=== PATIENT | male | born 1955 | race Caucasian/White ===

== ENCOUNTER 2017-12-17 11:24 | Emergency (ER) | payer MEDICAID ==
[~2017-12-17] VITALS: Ht 172.7 cm; Wt 104.8 kg
[~2017-12-17 11:24] MED LIST: CYCL-259 PO; IBUP-1223 PO; TRAZ-136 PO
[2017-12-17 11:25] VITALS: BP 143/80
[2017-12-17 12:16] LABS: BASOPHILS # (AUTO) 0.01 x10^3/uL (0-0.1); BASOPHILS % (AUTO) 0 % (0-1); EOSINOPHILS # (AUTO) 0.15 x10^3/uL (0-0.4); EOSINOPHILS % (AUTO) 2 % (1-7); LYMPHOCYTES # (AUTO) 1.11 x10^3/uL (1-3.4); LYMPHOCYTES % (AUTO) 13 % (22-44); MD NO; MEAN CORPUSCULAR HEMOGLOBIN 32.3 pg (27.5-34.5); MEAN CORPUSCULAR HGB CONC 34.4 g/dL (33.2-36.2); MEAN CORPUSCULAR VOLUME 93.8 fL (81-97); MEAN PLATELET VOLUME 9.1 fL (7.4-10.4); MONOCYTES # (AUTO) 0.82 x10^3/uL (0.2-0.8); MONOCYTES % (AUTO) 10 % (2-9); NEUTROPHILS # (AUTO) 6.19 x10^3/uL (1.8-6.8); NEUTROPHILS % (AUTO) 75 % (42-75); PLATELET COUNT 190 x10^3/uL (130-400); RED BLOOD COUNT 5.18 x10^6/uL (4.38-5.82); RED CELL DISTRIBUTION WIDTH 12.4 % (9.4-14.8)
[2017-12-17 12:24] LABS: ALBUMIN 3.8 g/dL (3.4-5.0); ANION GAP 7 mmol/L (5-15); CALCIUM 8.2 mg/dL (8.5-10.1); CHLORIDE 108 mmol/L (98-107)
[2017-12-17 12:28] LABS: ALANINE AMINOTRANSFERASE 34 U/L (12-78); ALKALINE PHOSPHATASE 122 U/L (45-117); BILIRUBIN,TOTAL 1.1 mg/dL (0.2-1.0); CREATININE 1.69 mg/dL (0.7-1.3); TOTAL PROTEIN 7.6 g/dL (6.4-8.2)
[2017-12-17] MEDS ORDERED: KETOROLAC 30 MG/1 ML ONE (12:44)
[2017-12-17] MEDS ORDERED: DIAZEPAM 5 MG TABLET ONE (12:45)
[2017-12-17] MEDS ORDERED: KETOROLAC 30 MG/1 ML IM ONE (13:00)
[2017-12-17] MEDS ORDERED: DIAZEPAM 5 MG TABLET PO ONE (13:00)
[2017-12-17 13:43] LABS: MICROSCOPIC NOT IND
[2017-12-17 13:47] LABS: CULTURE INDICATED? NO
== END 2017-12-17 14:22 | disposition home or self-care (01) ==
LOC: ED 13:42
DX: N13.30 Unspecified hydronephrosis (principal); Z87.442 Personal history of urinary calculi
CPT/HCPCS: 36415; 74021; 76770; 80053; 81003; 85025; 96372; 99285; J1885

== ENCOUNTER → 2018-01-16 | Outpatient (CLI) | payer MEDICAID | END | disposition home or self-care (01) | LOC: RAD 12:38 | PROVIDERS: ATTEND Student in an Organized Health Care Education/Training Program | DX: N13.4 Hydroureter (principal); N13.2 Hydronephrosis with renal and ureteral calculous obstruction | CPT/HCPCS: 74176 ==

== ENCOUNTER 2018-01-24 09:12 | Observation (INO) | payer MEDICAID ==
[~2018-01-24] VITALS: Ht 172.7 cm; Wt 101.0 kg
[2018-01-24 09:41] LABS: BASOPHILS # (AUTO) 0.02 x10^3/uL (0-0.1); BASOPHILS % (AUTO) 1 % (0-1); EOSINOPHILS # (AUTO) 0.18 x10^3/uL (0-0.4); EOSINOPHILS % (AUTO) 3 % (1-7); LYMPHOCYTES # (AUTO) 1.12 x10^3/uL (1-3.4); LYMPHOCYTES % (AUTO) 21 % (22-44); MD NO; MEAN CORPUSCULAR HEMOGLOBIN 31.1 pg (27.5-34.5); MEAN CORPUSCULAR VOLUME 91.5 fL (81-97); MEAN PLATELET VOLUME 8.8 fL (7.4-10.4); MONOCYTES # (AUTO) 0.25 x10^3/uL (0.2-0.8); MONOCYTES % (AUTO) 5 % (2-9); NEUTROPHILS # (AUTO) 3.78 x10^3/uL (1.8-6.8); NEUTROPHILS % (AUTO) 71 % (42-75); PLATELET COUNT 192 x10^3/uL (130-400); RED BLOOD COUNT 5.22 x10^6/uL (4.38-5.82); RED CELL DISTRIBUTION WIDTH 12.6 % (9.4-14.8)
[2018-01-24 09:53] LABS: ALBUMIN 3.9 g/dL (3.4-5.0); ANION GAP 7 mmol/L (5-15); CALCIUM 8.4 mg/dL (8.5-10.1); CHLORIDE 110 mmol/L (98-107); CREATININE 1.06 mg/dL (0.7-1.3)
[2018-01-24 11:31] LABS: MICROSCOPIC NOT IND
[2018-01-24 11:59] LABS: CULTURE INDICATED? NO
[2018-01-24] MEDS ORDERED: ONDANSETRON ODT 4 MG PO PRN (12:00)
[2018-01-24] MEDS ORDERED: hydrALAzine 20 MG/ML, 1ML IVPush PRN (12:00)
[2018-01-24] MEDS ORDERED: DOCUSATE 100 MG CAPSULE PO PRN (12:00)
[2018-01-24] MEDS ORDERED: POLYETHYLENE GLYCOL 17 GM PACKET PO PRN (12:00)
[2018-01-24] MEDS ORDERED: BISACODYL 10 MG SUPP PR PRN (12:00)
[2018-01-24] MEDS ORDERED: ACETAMINOPHEN 325 MG TABLET PO PRN (12:00)
[2018-01-24 12:11] VITALS: BP 125/82
[2018-01-24] MEDS ORDERED: TAMS-11 PO (12:32)
[2018-01-24] MEDS: KETOROLAC 30 MG/1 ML IV PRN ×2 (12:44→20:45)
[2018-01-24] MEDS: ENOXAPARIN 40 MG/0.4 ML SQ SCH (12:44)
[2018-01-24] MEDS: METHOCARBAMOL 500 MG TABLET PO PRN ×2 (12:45→20:45)
[2018-01-24] MEDS: LIDODERM 5% PATCH TD SCH (12:45)
[2018-01-24 20:35] VITALS: BP 116/76
[2018-01-24] MEDS: TRAZODONE 50MG TABLET PO SCH (20:49)
[2018-01-24] MEDS: SODIUM CHLORIDE FLUSH 10ML SYR IVF SCH (20:49)
[2018-01-25 02:45] VITALS: BP 109/52
[2018-01-25 05:30] LABS: ANION GAP 5 mmol/L (5-15); CALCIUM 7.9 mg/dL (8.5-10.1); CHLORIDE 108 mmol/L (98-107)
[2018-01-25 05:33] LABS: CREATININE 1.27 mg/dL (0.7-1.3)
[2018-01-25 07:15] VITALS: BP 119/80
[2018-01-25] MEDS: SODIUM CHLORIDE FLUSH 10ML SYR IVF SCH (09:30)
[2018-01-25] MEDS: ENOXAPARIN 40 MG/0.4 ML SQ SCH (10:06)
[2018-01-25] MEDS ORDERED: METH500T7 PO (11:21)
[2018-01-25] MEDS: LIDODERM 5% PATCH TD SCH ×2 (12:02→16:30)
[2018-01-25 13:11] VITALS: BP 135/77
[2018-01-25] MEDS: KETOROLAC 30 MG/1 ML IV PRN (16:30)
[2018-01-25] MEDS ORDERED: SUCCINYLCHOLINE 20 MG/ML, 10ML ONE (17:25)
[2018-01-25] MEDS ORDERED: ONDANSETRON 2MG/ML, 2ML ONE (17:25)
[2018-01-25] MEDS ORDERED: ROCURONIUM 10 MG/ML,10ML ONE (17:25)
[2018-01-25] MEDS ORDERED: DEXAMETHASONE 4 MG/ML, 1ML ONE (17:25)
[2018-01-25] MEDS ORDERED: CEFAZOLIN 1,000 MG ONE (17:25)
[2018-01-25] MEDS ORDERED: PROPOFOL 10 MG/ML, 20ML ONE (17:25)
[2018-01-25] MEDS ORDERED: MIDAZOLAM 1 MG/ML, 2ML ONE (17:27)
[2018-01-25] MEDS ORDERED: FENTANYL PF 250 MCG/5ML ONE (17:30)
[2018-01-25] MEDS ORDERED: EPHEDRINE 50 MG/ML, 1ML ONE (17:45)
[2018-01-25] MEDS ORDERED: MORPHINE SULFATE 4 MG/ML, 1ML IVPush PRN (18:00)
[2018-01-25] MEDS ORDERED: MEPERIDINE/PF 25MG/0.5ML IVPush PRN (18:00)
[2018-01-25] MEDS ORDERED: ONDANSETRON ODT 8 MG PO PRN (18:00)
[2018-01-25] MEDS ORDERED: LABETALOL 5MG/ML, 20ML IV PRN (18:00)
[2018-01-25] MEDS ORDERED: ONDANSETRON 2MG/ML, 2ML IV PRN (18:00)
[2018-01-25] MEDS ORDERED: PROMETHAZINE 12.5 MG SUPP PR PRN (18:00)
[2018-01-25] MEDS ORDERED: LORazepam 2 MG/ML, 1ML IVPush PRN (18:00)
[2018-01-25] MEDS ORDERED: ALBUTEROL SULFATE 2.5 MG/3 ML NPPB PRN (18:00)
[2018-01-25] MEDS ORDERED: OXYcodone 5 MG/5 ML ORAL.SOL UDC PO PRN (18:00)
[2018-01-25] MEDS ORDERED: hydrALAzine 20 MG/ML, 1ML IV PRN (18:00)
[2018-01-25] MEDS ORDERED: PROMETHAZINE 25 MG/ML, 1ML IV PRN (18:00)
[2018-01-25] MEDS ORDERED: HALOPERIDOL 5 MG/ML IV PRN (18:00)
[2018-01-25] MEDS ORDERED: EPHEDRINE 50 MG/ML, 1ML IVPush PRN (18:00)
[2018-01-25] MEDS ORDERED: MIDAZOLAM 1 MG/ML, 2ML IV PRN (18:00)
[2018-01-25] MEDS ORDERED: FENTANYL PF 100 MCG/2ML IV PRN (18:00)
[2018-01-25] MEDS ORDERED: HYDROmorphone 1 MG/ML, 1ML IV PRN (18:00)
[2018-01-25] MEDS: TRAZODONE 50MG TABLET PO SCH (20:41)
[2018-01-25] MEDS ORDERED: PHEN-418 PO (21:22)
[2018-01-25] MEDS ORDERED: POLY17PO5 PO (21:23)
== END 2018-01-25 22:00 | disposition home or self-care (01) ==
LOC: ED 09:21 → INTOOBSV 11:18 → EDIP 11:18 → 4NOR 12:03
PROVIDERS: ADMIT Hospitalist; ATTEND Hospitalist
DX: N13.2 Hydronephrosis with renal and ureteral calculous obstruction (principal); F41.9 Anxiety disorder, unspecified; G47.33 Obstructive sleep apnea (adult) (pediatric); M41.9 Scoliosis, unspecified; R53.82 Chronic fatigue, unspecified; Z91.19 Patient's noncompliance with other medical treatment and regimen; Z82.49 Family history of ischemic heart disease and other diseases of the circulatory system
CPT/HCPCS: 36415; 52332; 72110; 74018; 76001; 76770; 80048; 81003; 82040; 82360; 85025; 88300; 93005; 96374; 96375; 96376; 97161; 99285; C1726; C1769; C2617; G0378; J0330; J0690; J1100; J1650; J1885; J2250; J2405; J2704; J3010

== ENCOUNTER 2018-02-04 13:45 | Emergency (ER) | payer MEDICAID ==
[~2018-02-04] VITALS: Ht 172.7 cm; Wt 99.7 kg
[~2018-02-04 13:45] MED LIST changes: +METH500T7 PO; +PHEN-418 PO; +POLY17PO5 PO; +TAMS-11 PO
[2018-02-04 15:01] LABS: BASOPHILS # (AUTO) 0.04 x10^3/uL (0-0.1); BASOPHILS % (AUTO) 1 % (0-1); EOSINOPHILS # (AUTO) 0.27 x10^3/uL (0-0.4); EOSINOPHILS % (AUTO) 4 % (1-7); LYMPHOCYTES # (AUTO) 1.16 x10^3/uL (1-3.4); LYMPHOCYTES % (AUTO) 17 % (22-44); MD NO; MEAN CORPUSCULAR HEMOGLOBIN 30.7 pg (27.5-34.5); MEAN CORPUSCULAR HGB CONC 33.4 g/dL (33.2-36.2); MEAN PLATELET VOLUME 9.3 fL (7.4-10.4); MONOCYTES # (AUTO) 0.37 x10^3/uL (0.2-0.8); MONOCYTES % (AUTO) 5 % (2-9); NEUTROPHILS # (AUTO) 5.11 x10^3/uL (1.8-6.8); NEUTROPHILS % (AUTO) 74 % (42-75); PLATELET COUNT 192 x10^3/uL (130-400); RED BLOOD COUNT 5.03 x10^6/uL (4.38-5.82)
[2018-02-04 15:09] LABS: ANION GAP 7 mmol/L (5-15); CALCIUM 8.3 mg/dL (8.5-10.1); CHLORIDE 109 mmol/L (98-107); CREATININE 1.06 mg/dL (0.7-1.3)
[2018-02-04 15:11] LABS: CULTURE INDICATED? YES; MICROSCOPIC AUTO
[2018-02-04 16:07] VITALS: BP 117/68
== END 2018-02-04 16:09 | disposition home or self-care (01) ==
LOC: ED 14:03
DX: S30.1XXA Contusion of abdominal wall, initial encounter (principal); N20.0 Calculus of kidney; R31.9 Hematuria, unspecified; Z88.0 Allergy status to penicillin; X58.XXXA Exposure to other specified factors, initial encounter; Y93.89 Activity, other specified; Y92.89 Other specified places as the place of occurrence of the external cause; Y99.8 Other external cause status
CPT/HCPCS: 36415; 74018; 80048; 81001; 85025; 87086; 99285

== ENCOUNTER 2019-03-07 09:09 | Emergency (ER) | payer MEDICAID ==
[~2019-03-07] VITALS: Ht 172.7 cm; Wt 96.0 kg
[~2019-03-07 09:09] MED LIST changes: -TRAZ-136 PO; +TRAZ50TA66 PO
--- NOTE | 2019-03-07 10:19 | NUR ---
EMPLOYEE RELATIONS CONSULTANT: PT TO ROOM FROM [facility]
--- NOTE | 2019-03-07 10:45 | NUR ---
PT TO ED FOR LEFT FLANK PAIN X 2.5 MONTHS SINCE PT FELL OFF LADDER. PT STATES NAGGING PAIN SINCE FALL. PT ALSO STATES THIS PAIN FEELS SIMILAR TO KIDNEY STONES IN PAST. PT CONNECTED TO MONITORS. VSS. DR. WHITMORE TO BS FOR ASSESSMENT. AWIATING ORDERS. NO NEEDS EPXRESSED. CALL LIGHT WITHINR EACH.
--- NOTE | 2019-03-07 10:55 | NUR ---
PT TO XR.
[2019-03-07 11:12] LABS: MICROSCOPIC NOT IND
[2019-03-07 11:17] LABS: CULTURE INDICATED? NO
[2019-03-07 11:24] LABS: BASOPHILS # (AUTO) 0.02 x10^3/uL (0-0.1); BASOPHILS % (AUTO) 0 % (0-1); EOSINOPHILS # (AUTO) 0.16 x10^3/uL (0-0.4); EOSINOPHILS % (AUTO) 3 % (1-7); LYMPHOCYTES # (AUTO) 1.43 x10^3/uL (1-3.4); LYMPHOCYTES % (AUTO) 24 % (22-44); MD NO; MEAN CORPUSCULAR HEMOGLOBIN 30.7 pg (27.5-34.5); MEAN CORPUSCULAR HGB CONC 33.8 g/dL (33.2-36.2); MEAN CORPUSCULAR VOLUME 90.8 fL (81-97); MEAN PLATELET VOLUME 8.1 fL (7.4-10.4); MONOCYTES % (AUTO) 7 % (2-9); NEUTROPHILS # (AUTO) 3.99 x10^3/uL (1.8-6.8); NEUTROPHILS % (AUTO) 66 % (42-75); PLATELET COUNT 207 x10^3/uL (130-400); RED BLOOD COUNT 5.69 x10^6/uL (4.38-5.82)
[2019-03-07 11:34] LABS: ANION GAP 6 mmol/L (5-15); CALCIUM 8.8 mg/dL (8.5-10.1); CHLORIDE 107 mmol/L (98-107)
[2019-03-07 11:40] LABS: CREATININE 1.06 mg/dL (0.7-1.3); TROPONIN I < 0.015 ng/mL (0.000-0.045)
--- NOTE | 2019-03-07 12:01 | NUR ---
PT RESTING IN ROOM. VSS. NO NEEDS EXPRESSED. CALL LIGHT WITHIN REACH. AWAITING LAB RESULTS.
[2019-03-07 13:09] VITALS: BP 126/76
--- NOTE | 2019-03-07 13:10 | NUR ---
PT RESTING IN ROOM. VSS. PIV ESTABLISHED. AWAITING CT. NO NEEDS EXPRESSED. CALL LIGHT WITHIN REACH.
[2019-03-07] MEDS ORDERED: OMNIPAQUE 350 MG/ML, 100ML BOTTLE ONE (13:58)
== END 2019-03-07 14:50 | disposition home or self-care (01) ==
LOC: ED 14:31
DX: R10.9 Unspecified abdominal pain (principal); R06.00 Dyspnea, unspecified
CPT/HCPCS: 36415; 71046; 71275; 80048; 81003; 82040; 83880; 84484; 85025; 85379; 93005; 99284; Q9967